=== PATIENT | female | born 1950 | race Caucasian/White ===

== ENCOUNTER 2022-02-23 14:08 | Outpatient (CLI) | payer OTHER | END 2022-02-23 14:18 | disposition home or self-care (01) | LOC: RAD 14:08 | PROVIDERS: ATTEND Family Medicine | DX: R05.2 Subacute cough (principal) ==

== ENCOUNTER 2022-05-16 07:51 | Outpatient (CLI) | payer OTHER | END 2022-05-16 08:02 | disposition home or self-care (01) | LOC: SONOGRAMA 07:51 | PROVIDERS: ATTEND Family Medicine | DX: R31.0 Gross hematuria (principal) ==